=== PATIENT | male | born 1950 | race Caucasian/White ===

== ENCOUNTER 2016-12-03 13:29 | Inpatient (IN) | payer MEDICARE, OTHER ==
[~2016-12-03] VITALS: Ht 182.9 cm; Wt 93.0 kg
[2016-12-04 22:30] VITALS: BP 132/49
[2016-12-04] MEDS ORDERED: CHLO25CA22 PO ×3 (22:57)
[2016-12-04] MEDS ORDERED: TAMS-12 PO (22:57)
[2016-12-04] MEDS ORDERED: AMLO10TA4 PO (22:57)
[2016-12-04] MEDS ORDERED: CLON0.5T PO (22:57)
[2016-12-04] MEDS ORDERED: DULO20CA PO (22:57)
[2016-12-04] MEDS ORDERED: MAGNESIUM HYDROXIDE 30 ML UDC PO PRN (23:00)
[2016-12-04] MEDS ORDERED: MAG HYDROX/AL HYDROX/SIMETH 30 ML UDC PO PRN (23:00)
[2016-12-04] MEDS ORDERED: ACETAMINOPHEN 325 MG TABLET PO PRN (23:00)
[2016-12-04] MEDS ORDERED: TEMAZEPAM 7.5 MG CAPSULE ONE (23:19)
[2016-12-04] MEDS: TEMAZEPAM 7.5 MG CAPSULE PO PRN (23:27)
[2016-12-05 01:08] VITALS: BP 132/79
[2016-12-05 07:20] LABS: BASOPHILS # (AUTO) 0.1 /CMM (0.0-0.2); BASOPHILS % (AUTO) 1.3 % (0.0-2.0); DIFF TOTAL % 100 %; EOSINOPHILS # (AUTO) 0.2 /CMM (0.0-0.7); HEMATOCRIT 41 % (39-51); HEMOGLOBIN 13.9 g/dL (13.5-17.5); LYMPHOCYTES # (AUTO) 1.2 /CMM (0.8-4.8); LYMPHOCYTES % (AUTO) 26.1 % (20.0-44.0); MEAN CORPUSCULAR HEMOGLOBIN 33 PG (26.0-33.0); MEAN CORPUSCULAR HGB CONC 34 g/dl (31.0-36.0); MEAN CORPUSCULAR VOLUME 97 fL (80-96); MONOCYTES # (AUTO) 0.5 /CMM (0.1-1.30); MONOCYTES % (AUTO) 11.1 % (2.0-12.0); NEUTROPHILS # (AUTO) 2.7 /CMM (1.8-8.9); NEUTROPHILS % (AUTO) 56.5 % (43.0-81.0); PLATELET COUNT (AUTO) 254 /CMM (150-450); RED BLOOD CELL COUNT(AUTO) 4.23 MIL/uL (4.5-6.0); WHITE BLOOD COUNT (AUTO) 4.8 K/uL (4.3-11.0)
[2016-12-05 07:45] LABS: ALBUMIN 3.6 g/dL (3.4-5.0); BILIRUBIN,TOTAL 0.7 mg/dL (0.2-1.0); CALCIUM, SERUM 8.4 mg/dL (8.5-10.1); CREATININE 0.8 mg/dL (0.6-1.3); POTASSIUM 3.7 mmol/L (3.5-5.1); TOTAL PROTEIN, SERUM 7.2 g/dL (6.4-8.2)
[2016-12-05 08:00] VITALS: BP 142/83
[2016-12-05] MEDS ORDERED: PARO30TA3 PO (08:20)
[2016-12-05] MEDS: LORAZEPAM 0.5 MG TABLET PO PRN ×2 (10:05→16:01)
[2016-12-05] MEDS: AMLODIPINE BESYLATE 10 MG TABLET PO SCH (10:45)
[2016-12-05] MEDS: TAMSULOSIN 0.4 MG CAP.SR.24H PO SCH (10:45)
[2016-12-05] MEDS: CHLORDIAZEPOXIDE HCL 25 MG CAPSULE PO SCH ×3 (12:58→17:53)
[2016-12-05 16:16] VITALS: BP 138/85
[2016-12-05] MEDS ORDERED: CHLORDIAZEPOXIDE HCL 10 MG CAPSULE PO PRN (17:30)
[2016-12-05] MEDS: PAROXETINE HCL 20 MG TABLET PO SCH (19:07)
[2016-12-05 20:00] VITALS: BP 131/86
[2016-12-05] MEDS: TEMAZEPAM 7.5 MG CAPSULE PO PRN (21:37)
[2016-12-06 08:12] VITALS: BP 135/74
[2016-12-06] MEDS ORDERED: CHLORDIAZEPOXIDE HCL 25 MG CAPSULE PO SCH (09:00)
[2016-12-06] MEDS: FOLIC ACID 1 MG TABLET PO SCH (10:52)
[2016-12-06] MEDS: CHLORDIAZEPOXIDE HCL 25 MG CAPSULE PO SCH ×3 (10:52→18:36)
[2016-12-06] MEDS: THIAMINE HCL 100 MG TABLET PO SCH (10:53)
[2016-12-06] MEDS: PANTOPRAZOLE 40 MG TABLET.DR PO SCH (10:53)
[2016-12-06] MEDS: TAMSULOSIN 0.4 MG CAP.SR.24H PO SCH (10:54)
[2016-12-06] MEDS: AMLODIPINE BESYLATE 10 MG TABLET PO SCH (10:54)
[2016-12-06] MEDS: PAROXETINE HCL 20 MG TABLET PO SCH (10:55)
[2016-12-06 15:57] VITALS: BP 139/99
[2016-12-06 19:55] VITALS: BP 155/88
[2016-12-06] MEDS: TEMAZEPAM 7.5 MG CAPSULE PO PRN (21:47)
[2016-12-07 08:00] VITALS: BP 128/78
[2016-12-07] MEDS: TAMSULOSIN 0.4 MG CAP.SR.24H PO SCH (08:00)
[2016-12-07] MEDS: FOLIC ACID 1 MG TABLET PO SCH (08:00)
[2016-12-07] MEDS: PAROXETINE HCL 10 MG TABLET PO SCH (08:00)
[2016-12-07] MEDS: PANTOPRAZOLE 40 MG TABLET.DR PO SCH (08:00)
[2016-12-07] MEDS: CHLORDIAZEPOXIDE HCL 25 MG CAPSULE PO SCH ×3 (08:01→16:42)
[2016-12-07] MEDS: THIAMINE HCL 100 MG TABLET PO SCH (08:01)
[2016-12-07] MEDS: AMLODIPINE BESYLATE 10 MG TABLET PO SCH (08:01)
[2016-12-07 16:00] VITALS: BP 150/87
[2016-12-07 20:00] VITALS: BP 199/89
[2016-12-07] MEDS: TEMAZEPAM 7.5 MG CAPSULE PO PRN (21:11)
[2016-12-08] MEDS: TAMSULOSIN 0.4 MG CAP.SR.24H PO SCH (08:32)
[2016-12-08] MEDS: CHLORDIAZEPOXIDE HCL 25 MG CAPSULE PO SCH ×3 (08:32→16:47)
[2016-12-08] MEDS: THIAMINE HCL 100 MG TABLET PO SCH (08:32)
[2016-12-08] MEDS: PAROXETINE HCL 10 MG TABLET PO SCH (08:32)
[2016-12-08] MEDS: PANTOPRAZOLE 40 MG TABLET.DR PO SCH (08:33)
[2016-12-08] MEDS: FOLIC ACID 1 MG TABLET PO SCH (08:33)
[2016-12-08] MEDS: AMLODIPINE BESYLATE 10 MG TABLET PO SCH (08:36)
[2016-12-08 08:43] VITALS: BP 139/89
[2016-12-08] MEDS ORDERED: CHLORDIAZEPOXIDE HCL 25 MG CAPSULE PO SCH (09:00)
[2016-12-08 16:24] VITALS: BP 138/81
[2016-12-08 20:00] VITALS: BP 127/77
[2016-12-08 20:06] VITALS: BP 127/77
[2016-12-08] MEDS: TEMAZEPAM 7.5 MG CAPSULE PO PRN (21:00)
[2016-12-09 08:00] VITALS: BP 147/84
[2016-12-09] MEDS: PAROXETINE HCL 10 MG TABLET PO SCH (08:55)
[2016-12-09] MEDS: AMLODIPINE BESYLATE 10 MG TABLET PO SCH (08:55)
[2016-12-09] MEDS: TAMSULOSIN 0.4 MG CAP.SR.24H PO SCH (08:56)
[2016-12-09] MEDS: CHLORDIAZEPOXIDE HCL 25 MG CAPSULE PO SCH ×3 (08:56→16:56)
[2016-12-09] MEDS: FOLIC ACID 1 MG TABLET PO SCH (08:56)
[2016-12-09] MEDS: PANTOPRAZOLE 40 MG TABLET.DR PO SCH (08:56)
[2016-12-09] MEDS: THIAMINE HCL 100 MG TABLET PO SCH (08:56)
[2016-12-09 16:00] VITALS: BP 128/82
[2016-12-09 20:00] VITALS: BP 132/74
[2016-12-09] MEDS: TEMAZEPAM 7.5 MG CAPSULE PO PRN (20:54)
[2016-12-10 07:36] LABS: CREATININE 0.8 mg/dL (0.6-1.3); POTASSIUM 3.6 mmol/L (3.5-5.1)
[2016-12-10 08:00] VITALS: BP 148/78
[2016-12-10] MEDS: THIAMINE HCL 100 MG TABLET PO SCH (10:41)
[2016-12-10] MEDS: FOLIC ACID 1 MG TABLET PO SCH (10:41)
[2016-12-10] MEDS: AMLODIPINE BESYLATE 10 MG TABLET PO SCH (10:41)
[2016-12-10] MEDS: PANTOPRAZOLE 40 MG TABLET.DR PO SCH (10:42)
[2016-12-10] MEDS: TAMSULOSIN 0.4 MG CAP.SR.24H PO SCH (10:42)
[2016-12-10] MEDS: PAROXETINE HCL 10 MG TABLET PO SCH (10:42)
[2016-12-10] MEDS: CHLORDIAZEPOXIDE HCL 25 MG CAPSULE PO SCH ×3 (10:42→17:23)
[2016-12-10 16:00] VITALS: BP 136/75
[2016-12-10 20:00] VITALS: BP 133/87
[2016-12-10] MEDS: TEMAZEPAM 7.5 MG CAPSULE PO PRN (21:25)
[2016-12-11 08:00] VITALS: BP 147/80
[2016-12-11 08:28] VITALS: BP 147/80
[2016-12-11] MEDS: PANTOPRAZOLE 40 MG TABLET.DR PO SCH (08:28)
[2016-12-11] MEDS: PAROXETINE HCL 10 MG TABLET PO SCH (08:28)
[2016-12-11] MEDS: AMLODIPINE BESYLATE 10 MG TABLET PO SCH (08:28)
[2016-12-11] MEDS: CHLORDIAZEPOXIDE HCL 25 MG CAPSULE PO SCH ×2 (08:28→12:50)
[2016-12-11] MEDS: FOLIC ACID 1 MG TABLET PO SCH (08:28)
[2016-12-11] MEDS: TAMSULOSIN 0.4 MG CAP.SR.24H PO SCH (08:28)
[2016-12-11] MEDS: THIAMINE HCL 100 MG TABLET PO SCH (08:29)
== END 2016-12-11 14:30 | disposition home or self-care (01) | DRG 885 ==
LOC: GPS 12-04 22:16
PROVIDERS: ADMIT Psychiatry & Neurology Psychiatry; ATTEND Contractor
DX: F32.2 Major depressive disorder, single episode, severe without psychotic features (principal); N17.0 Acute kidney failure with tubular necrosis; R45.851 Suicidal ideations; F10.20 Alcohol dependence, uncomplicated; I10 Essential (primary) hypertension; N40.0 Benign prostatic hyperplasia without lower urinary tract symptoms; F41.0 Panic disorder [episodic paroxysmal anxiety]; F17.210 Nicotine dependence, cigarettes, uncomplicated; F19.10 Other psychoactive substance abuse, uncomplicated
CPT/HCPCS: 36415; 80048-TC; 80053-TC; 80061-TC; 85025-TC; 87081-TC